=== PATIENT | male | born 1975 | race Caucasian/White ===

== ENCOUNTER 2016-10-09 09:12 | Emergency (ER) | payer MEDICAID ==
[~2016-10-09] VITALS: Ht 170.2 cm; Wt 68.0 kg
--- NOTE | 2016-10-09 09:15 | NUR ---
PT BBRA 39 FROM [facility] FOR WITNESSED SZ. PT STATES HX OF, BUT DOES NOT RECALL MEDICATION HE TAKES. ALSO STATES USING HEROIN. BS 121 IN FIELD. PLACED ON MONITOR. VSS. AWAITING MD ORDER
--- NOTE | 2016-10-09 09:15 | NUR ---
SEIZURE PRECAUTION IN PLACE
--- NOTE | 2016-10-09 09:20 | NUR ---
LAB AT BEDSIDE BLOOD SAMPLE COLLECTED
--- NOTE | 2016-10-09 09:25 | NUR ---
PT TAKEN TO CT VIA [facility]
[2016-10-09] MEDS ORDERED: LORAZEPAM 1 MG TABLET ONE (09:27)
[2016-10-09] MEDS ORDERED: LORAZEPAM 1 MG TABLET PO ONE (09:30)
[2016-10-09 09:33] LABS: EOSINOPHILS % (AUTO) 0.2 % (0.0-6.0); HEMATOCRIT 48 % (39-51); HEMOGLOBIN 16.1 g/dL (13.5-17.5); LYMPHOCYTES % (AUTO) 6.4 % (20.0-44.0); MEAN CORPUSCULAR HEMOGLOBIN 29 PG (26.0-33.0); MEAN CORPUSCULAR HGB CONC 34 g/dl (31.0-36.0); MEAN CORPUSCULAR VOLUME 85 fL (80-96); MONOCYTES # (AUTO) 0.7 /CMM (0.1-1.30); MONOCYTES % (AUTO) 4.4 % (2.0-12.0); NEUTROPHILS # (AUTO) 14.5 /CMM (1.8-8.9); PLATELET COUNT (AUTO) 466 /CMM (150-450); WHITE BLOOD COUNT (AUTO) 16.2 K/uL (4.3-11.0)
[2016-10-09 09:47] LABS: CALCIUM, SERUM 9.6 mg/dL (8.5-10.1); POTASSIUM 3.7 mmol/L (3.5-5.1)
--- NOTE | 2016-10-09 10:11 | NUR ---
CALLED TRANSPORT ETA 15MIN
[2016-10-09 10:27] VITALS: BP 177/111
--- NOTE | 2016-10-09 10:39 | NUR ---
Patient discharged to home in stable condition. Written and verbal after care instructions given. Patient verbalizes understanding of instruction.
== END 2016-10-09 10:39 | disposition home or self-care (01) ==
LOC: ER 09:16
DX: R56.9 Unspecified convulsions (principal); F11.23 Opioid dependence with withdrawal; F32.9 Major depressive disorder, single episode, unspecified
CPT/HCPCS: 36415; 70450; 80048; 85025; 99285; A4606; Z7610

== ENCOUNTER 2017-07-03 16:36 | Emergency (ER) | payer MEDICAID ==
[~2017-07-03] VITALS: Ht 170.2 cm; Wt 64.9 kg
--- NOTE | 2017-07-03 16:40 | NUR ---
BIBRA 88 FOR SUICIDAL IDEATION PLAN IS TO CUT HIS WRIST, NAD NOTED, VSS, RESP EVEN AND UNLABORED, PT WAS PUT ON MONITOR, WAITING FOR MD HODGE.
[2017-07-03 17:10] LABS: BASOPHILS # (AUTO) 0.1 /CMM (0.0-0.2); BASOPHILS % (AUTO) 0.3 % (0.0-2.0); EOSINOPHILS % (AUTO) 0.2 % (0.0-6.0); HEMATOCRIT 47 % (39-51); HEMOGLOBIN 16.5 g/dL (13.5-17.5); LYMPHOCYTES # (AUTO) 1.6 /CMM (0.8-4.8); LYMPHOCYTES % (AUTO) 8.6 % (20.0-44.0); MEAN CORPUSCULAR HEMOGLOBIN 30 PG (26.0-33.0); MEAN CORPUSCULAR HGB CONC 36 g/dl (31.0-36.0); MEAN CORPUSCULAR VOLUME 85 fL (80-96); MONOCYTES # (AUTO) 0.9 /CMM (0.1-1.30); NEUTROPHILS # (AUTO) 15.7 /CMM (1.8-8.9); NEUTROPHILS % (AUTO) 85.9 % (43.0-81.0); PLATELET COUNT (AUTO) 501 /CMM (150-450); RED BLOOD CELL COUNT(AUTO) 5.46 MIL/uL (4.5-6.0); WHITE BLOOD COUNT (AUTO) 18.3 K/uL (4.3-11.0)
[2017-07-03 17:18] LABS: CALCIUM, SERUM 9.4 mg/dL (8.5-10.1); CARBON DIOXIDE 28 mmol/L (21-32); CHLORIDE 95 mmol/L (98-107); CREATININE 0.8 mg/dL (0.6-1.3); GLUCOSE 124 mg/dL (74-106); POTASSIUM 3.6 mmol/L (3.5-5.1); SODIUM SERUM 132 mmol/L (136-145); UREA NITROGEN, BLOOD 13 mg/dL (7-18)
[2017-07-03 17:23] LABS: ALANINE AMINOTRANSFERASE 19 U/L (12-78); ALKALINE PHOSPHATASE 89 U/L (46-116); ASPARTATE AMINOTRANSFERASE 15 U/L (15-37); BILIRUBIN,DIRECT 0.2 mg/dL (0.0-0.2); TOTAL PROTEIN, SERUM 8.4 g/dL (6.4-8.2)
--- NOTE | 2017-07-03 17:25 | NUR ---
PT UNABLE TO GIVE URINE AT THIS MOMENT.
[2017-07-03 17:57] LABS: ACETAMINOPHEN < 2 ug/ml (10-30); ALCOHOL, BLOOD < 3 mg/dL (0-0); SALICYLATE < 2.8 mg/dL (2.8-20.0)
--- NOTE | 2017-07-03 18:50 | NUR ---
Patient is resting comfortably in bed with eyes closed. Easily aroused. VSS
--- NOTE | 2017-07-03 19:06 | NUR ---
CALLED [employer], LEFT VOICEMAIL.
--- NOTE | 2017-07-03 19:25 | NUR ---
URINE SENT TO LAB
[2017-07-03 19:40] LABS: APPEARANCE,URINE Slightly Cloudy (CLEAR); BILIRUBIN,URINE SMALL (NEGATIVE); BLOOD, URINE Negative Ery/uL (NEGATIVE); COLOR,URINE Dark (YELLOW); KETONES,URINE Negative (NEGATIVE); LEUKOCYTE ESTERASE ,URINE Negative (NEGATIVE); NITRITE, URINE Negative (NEGATIVE); PROTEIN,URINE 100 mg/dl (NEGATIVE); UGLUCOSE Negative (NEGATIVE); UROBILINOGEN,URINE 0.2 EU/dL (0.2)
[2017-07-03 19:52] LABS: BACTERIA,URINE Few /HPF (None Seen); RBC,URINE 0-2 /HPF (0-2); SQUAMOUS EPITHELIAL CELL,UR Moderate /HPF (None Seen); WBC,URINE 0-2 /HPF (0-3)
[2017-07-03 19:53] LABS: MUCUS,URINE Many /LPF (None Seen)
--- NOTE | 2017-07-03 23:26 | NUR ---
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 pt ok to transfer. report given to nic.
--- NOTE | 2017-07-04 00:30 | NUR ---
Patient is resting comfortably in bed with eyes closed. Easily aroused. VSS
--- NOTE | 2017-07-04 02:45 | NUR ---
PT SLEEPING COMFORTABLY LEFT LATERAL ON BED. AWAKENS TO NAME. READJUSTED BP CUFF AND MONITOR LINES. GIVEN BLANKET REQUESTED. VSS, NAD NOTED. PT RETURED TO SLEEP. WILL CONT TO MONITOR.
--- NOTE | 2017-07-04 04:20 | NUR ---
PT SLEEPING COMFORTABLY SUPINE ON BED. AWAKENS TO NAME. READJUSTED BP CUFF AND MONITOR LINES AGAIN. DENIES COMPLAINT. VSS, NAD NOTED. PT RETURED TO SLEEP. WILL CONT TO MONITOR.
[2017-07-04 06:12] VITALS: BP 140/100
--- NOTE | 2017-07-04 06:16 | NUR ---
PT SLEEPING COMFORTABLY LEFT LATERAL ON BED. AWAKENS TO NAME. BP CUFF AND MONITOR LINES REATTACHED TO PT. VSS, NAD NOTED. PT RETURED TO SLEEP. WILL CONT TO MONITOR.
--- NOTE | 2017-07-04 08:06 | NUR ---
KATY REDD RN FOR PSYCH EVAL, ETA 45 MINUTES.
--- NOTE | 2017-07-04 09:48 | NUR ---
REPORT GIVEN TO RAYMOND CHRISTENSEN ([phone] EXT [phone]) FOR [place]. PATIENT IS GOING TO [facility] (P-6).
--- NOTE | 2017-07-04 09:57 | NUR ---
REQUESTED BLS RIG FROM [facility]# [id number] - ETA 80 MIN
== END 2017-07-04 12:08 ==
LOC: ER 16:38
DX: R45.851 Suicidal ideations (principal); F32.9 Major depressive disorder, single episode, unspecified; F20.9 Schizophrenia, unspecified
CPT/HCPCS: 36415; 80048; 80076; 80305; 80329; 81001; 85025; 99285; A4606; G0480 ×2; Z7610; 81000-TC